=== PATIENT | female | born 1940 | race Caucasian/White ===

== ENCOUNTER 2021-01-10 10:05 | Outpatient (RCR) | payer MEDICARE, SELFPAY ==
[2021-01-10] MEDS: COVID-19 VACC, MRNA(PFIZER)/PF 30 MCG/0.3 ML SYRINGE IM (07:47)
[2021-01-31] MEDS: COVID-19 VACC, MRNA(PFIZER)/PF 30 MCG/0.3 ML SYRINGE IM (07:33)
== END 2021-01-10 23:59 ==
LOC: IMMUN 10:05
PROVIDERS: Visit Provider Family Medicine
DX: Z23 Encounter for immunization (principal)
CPT/HCPCS: 0001A; 0002A

== ENCOUNTER 2021-08-23 11:04 | Emergency (ER) | payer MEDICARE, SELFPAY ==
[2021-08-23 11:05] VITALS: BP 193/80; PULSE 82; RESP 14; TEMP 36.6; O2SAT 100; BMI 21.4
[2021-08-23 12:49] VITALS: PULSE 81; RESP 13; O2SAT 97
[2021-08-23 13:24] LABS: Anion Gap 6 (5-15); BUN 21 mg/dL (7-18); BUN/Creat Ratio 26.9 RATIO (10-20); Calcium,Total 9.7 mg/dL (8.5-10.1); Chloride 102 mmol/L (98-107); Creatinine, Serum 0.78 mg/dL (0.55-1.02); EST Glomerular Filtration Rate 75 mL/min (>60); Est Glom Filt Rate - Afr Amer 91 mL/min (>60); Estimated Creatinine Clearance 37.12 ml/min; Glucose 105 mg/dL (74-106); Potassium 3.6 mmol/L (3.5-5.1); Sodium Level 139 mmol/L (136-145)
--- NOTE | 2021-08-23 13:37 | CT_ITS ---
STUDY: CTA CHEST, ABDOMEN T PELVIS WITH CONTRAST REASON FOR EXAM: Female, 80 years old. chest/abd/pelv pain w/ back pain -- eval for dissection RADIATION DOSAGE (If Supplied By Facility): CTDIvol = ( 6.14 ) mGy, DLP = ( 431.39 ) mGycm TECHNIQUE: Transaxial imaging was performed following intravenous administration of IV 100mL Isovue-370. Individualized dose optimization techniques were used for this CT. COMPARISON: No relevant priors. FINDINGS: CHEST Mild degree of the emphysematous changes. There is no demonstrated pleural abnormality. Normal heart and pericardium. Normal mediastinum. Normal hilar regions. Normal unenhanced pulmonary arteries. There is atherosclerotic calcification of the aortic arch. No evidence of aortic dissection. Normal osseous structures. There is no demonstrated abnormality of the visualized upper abdomen. ABDOMEN The visualized lung bases are unremarkable. The visualized portions of the heart are within normal limits. Normal liver. Mildly distended gallbladder. Mildly dilated common bile duct down to the ampulla of VATER. Normal spleen. The pancreatic duct is dilated down to the ampulla of VATER.. Normal bilateral adrenal glands. Normal right kidney. Normal left kidney. Normal visualized stomach. There is evidence of a 1.6 cm x 1 cm diverticulum in the second portion of the duodenum. Normal colon. The appendix is visualized and appears normal. There is scattered atherosclerotic calcification of the abdominal aorta, without a demonstrated aneurysm. No evidence of an aortic dissection. Minimal calcific plaque at the origin of the celiac artery. Normal inferior vena cava. Normal retroperitoneum. Normal abdominal wall. There are degenerative changes of the visualized lumbar spine. PELVIS Normal urinary bladder. Fibroid uterus. Normal visualized small intestine. Normal visualized colon. There is no pelvic fluid. There is no pelvic lymphadenopathy or mass lesion. Normal visualized pelvic arteries. CT/CTA Chst, Abd, Pel W and/or WO IMPRESSION: No evidence of aortic dissection. Mildly dilated pancreatic duct and common bile duct. Mildly distended gallbladder. Duodenal diverticulum. Electronically Signed: Kit Samuel MD at 15:05 EDT , Service support ,
--- NOTE | 2021-08-23 13:38 | EKG12_ITS ---
Test Reason : ABDOMINAL PAIN Blood Pressure : / mmHG Vent. Rate : 088 BPM Atrial Rate : 088 BPM P-R Int : 114 ms QRS Dur : 066 ms QT Int : 358 ms P-R-T Axes : 080 025 081 degrees QTc Int : 433 ms Normal sinus rhythm Nonspecific ST abnormality Abnormal ECG Confirmed by ALEXUS RODRIGUEZ, FILEMON ([id number]), graphic editor VIKI MANN ([id number]) on 08/27/2021 7:52:45 AM Referred By: DANIELITO Confirmed By:FILEMON VAUGHAN MD
--- NOTE | 2021-08-23 13:42 | EDS_ITS ---
HPI History of Present Illness Chief Complaint: Abd Pain Informant: patient Onset/Context/Timing Onset: Today (this AM, 3-5 hrs prior to eval) Context: Sudden Onset Timing: Continuous and Waxes and wanes (colicky) Quality: pain Location: midline chest, abd, pelv Current Severity: Severe Maximum Severity: Severe Worsened by: nothing Relieved by: nothing Associated Symptoms Associated Symptoms: low back pain, nausea Narrative Narrative: 80-year-old female who started having hematuria last week and some suprapubic pressure, she was started on an unknown antibiotic 5 days ago, and then it was switched to nitrofurantoin which she is currently taking since 1-2 days. She states this morning about an hour after taking the antibiotic, her other medications, and eating a banana and cereal/milk, she suddenly started having severe pain from the suprapubic area all the way up to her retrosternal area. She has some pain in her low back and she cannot tell if it is related to this, or to the prior urine infection, or her chronic sciatica. She has had no syncope but she did feel lightheaded earlier. She denies any more hematuria. She has felt nauseated but no vomiting. She has had no recent diarrhea or bleeding per rectum. She does not have a history of heart disease that she knows of. She denies any dyspnea or cough or fevers. [facility] Medical History Hypothyroid Home Medications levothyroxine 75 mcg PO DAILY 08/23/21 [History Last Taken Unknown] nitrofurantoin monohyd/m-cryst 100 mg PO BID 08/23/21 [History Last Taken Unknown] Allergy/AdvReac Type Severity Reaction Status Date / Time Unable to Assess Allergy Verified 08/23/21 11:05 Social History Smoking Status: Never smoker ROS ROS ED Constitutional Constitutional ED: Denies chills or fever(s) Eyes Eyes: Denies change in vision or diplopia ENT ENT ED: Denies rhinorrhea or sore throat Cardiovascular Cardiovascular: Reports chest pain; Denies palpitations Respiratory/Chest Respiratory/Chest: Denies cough or dyspnea Gastrointestinal Gastrointestinal: Reports as per HPI, abdominal pain and nausea; Denies diarrhea or vomiting Genitourinary Genitourinary ED: Reports as per HPI; Denies dysuria or hematuria Musculoskeletal Musculoskeletal: Reports back pain; Denies neck pain Integumentary Denies abscess or rash Neurologic Neurologic: Denies headache(s), paresthesias or weakness Psychiatric Psychiatric: Denies anxiety or suicidal thoughts EXAM Physical Exam Const Vital Signs: 08/23/21 11:05 08/23/21 12:49 08/23/21 15:35 Temperature 97.8 F Temperature Source Temporal Pulse Rate 82 81 91 Respiratory Rate 14 13 19 H Blood Pressure 193/80 H Blood Pressure Mean 117 Pulse Ox 100 97 93 Oxygen Delivery Method Room Air Room Air Room Air Positive well nourished and well developed General Appearance ED: well developed and NAD HEENT Reports moist mucous membranes normocephalic and atraumatic Eyes PERRL and EOMs intact bilaterally Neck full ROM and supple Resp normal respiratory effort and clear to auscultation bilaterally Cardio regular rate, regular rhythm and no murmurs Cardio Narrative: 2+ dorsalis pedis pulses intact. Rate: Negative for tachycardic GI GI Narrative: Patient is diffusely tender with rebound tenderness, no guarding. No distention. No Flaherty Frey or [place] signs. Auscultation: normoactive bowel sounds Palpation: soft Back/Spine no CVA tenderness General Back: other FROM Extremity normal to inspection General Extremety ED: Negative for edema, pulses abnormal or tenderness General Extremity: Negative for edema or pulses abnormal Neuro oriented x3, CN's II-XII intact bilaterally and no sensory deficits noted Sensorium / Orientation: awake and alert Motor Exam: strength 5/5 throughout Skin no rashes or lesions noted and no wounds MDM MDM MDM Narrative Medical decision making narrative: Patient looks good clinically but is very hypertensive, has clinical symptoms that could be consistent with a dissection or ruptured AAA, has tenderness diffusely throughout the abdomen along with some rebound tenderness. Therefore initially, CTA of the chest abdomen pelvis was obtained to rule out these catastrophic conditions, which likely she does not have however a distended gallbladder was noted. I reexamined her after given her morphine, she was feeling much better, but is oil process stillman across the upper abdomen, I did a bedside ultrasound, I do not see any stones but she definitely has a positive sonographic Palacios's and the gallbladder appears to be up against the abdominal wall at its distal point in the right mid abdomen, which may be explaining her peritoneal symptoms/findings. Her labs are unremarkable including her troponin, and her EKG is essentially normal. After the analgesics, her chest symptoms are gone. Discussed all this with surgery Dr. Thompson. He recommends getting an official ultrasound first. If there are stones, then we can manage her from there, depending on if there appear to be any in the ducts or not given that she had some mild diffuse ductal dilatation. If negative, and the patient is doing okay, she may be reasonable to follow-up as an outpatient and have a HIDA scan versus MRCP then. Therefore at this time ultrasound of the gallbladder is ordered, will be checked out to the oncoming emergency physician. Since the patient will be here, I will also get a 2-hour delta troponin measurement, I do not think her chest discomfort was cardiac I think it was more related to her abdominal pain which I suspect is biliary colic, and if negative I think this will help prove no ncardiac etiology. Lab Data Attestation: I reviewed the patient's lab results. Labs: Laboratory Results - last 24 hr 08/23/21 08/23/21 08/23/21 12:05 12:05 12:05 WBC 9.1 RBC 4.99 Hgb 15.1 H Hct 47.4 H MCV 95.0 MCH 30.3 MCHC 31.9 L RDW Std Deviation 44.1 H RDW Coeff of Karon 12.7 Plt Count 353 MPV 10.0 Immature Gran % (Auto) 0.300 Neut % (Auto) 75.0 H Lymph % (Auto) 19.2 [place] % (Auto) 4.1 Eos % (Auto) 1.1 Baso % (Auto) 0.3 Absolute Neuts (auto) 6.8 Absolute Lymphs (auto) 1.74 Nucleated RBC % 0 Sodium 139 Potassium 3.6 Chloride 102 Carbon Dioxide 31.0 Anion Gap 6 BUN 21 H Creatinine 0.78 Estim Creat Clear Calc 37.12 Est GFR (MDRD) Af Amer 91 Est GFR (MDRD) Non-Af 75 BUN/Creatinine Ratio 26.9 H Glucose 105 Calcium 9.7 Total Bilirubin 0.30 Direct Bilirubin 0.12 AST 26 ALT 22 Alkaline Phosphatase 75 Troponin I High Sens Total Protein 7.7 Albumin 3.2 Globulin 4.5 H Lipase 145 Urine Color Urine Clarity Urine pH Ur Specific [place] U Specif Grav (Refrac) Urine Protein Urine Glucose (UA) Urine Ketones Urine Occult Blood Urine Nitrite Urine Bilirubin Urine Urobilinogen Ur Leukocyte Esterase Urine RBC Urine WBC Ur Squamous Epith Cells Ur Transition Epith Cell Ur Renal Epithelial Cell Calcium Oxalate Crystal Uric Acid Crystals Triple Phos Crystals Other Crystals Amorphous Sediment Urine Bacteria Hyaline Casts Fine Granular Casts Coarse Granular Casts Waxy Casts RBC Casts WBC Casts Urine Mucus Urine Trichomonas Urine Yeast 08/23/21 08/23/21 08/23/21 12:05 15:01 15:01 WBC RBC Hgb Hct MCV MCH MCHC RDW Std Deviation RDW Coeff of Karon Plt Count MPV Immature Gran % (Auto) Neut % (Auto) Lymph % (Auto) [place] % (Auto) Eos % (Auto) Baso % (Auto) Absolute Neuts (auto) Absolute Lymphs (auto) Nucleated RBC % Sodium Potassium Chloride Carbon Dioxide Anion Gap BUN Creatinine Estim Creat Clear Calc Est GFR (MDRD) Af Amer Est GFR (MDRD) Non-Af BUN/Creatinine Ratio Glucose Calcium Total Bilirubin Direct Bilirubin AST ALT Alkaline Phosphatase Troponin I High Sens 53 Total Protein Albumin Globulin Lipase Urine Color Cancelled Yellow Urine Clarity Cancelled Clear Urine pH Cancelled 7.0 Ur Specific [place] Cancelled 1.010 U Specif Grav (Refrac) Cancelled Urine Protein Cancelled Negative Urine Glucose (UA) Cancelled Normal Urine Ketones Cancelled 5 H Urine Occult Blood Cancelled Negative Urine Nitrite Cancelled Negative Urine Bilirubin Cancelled Negative Urine Urobilinogen Cancelled Normal Ur Leukocyte Esterase Cancelled 100 H Urine RBC Cancelled 0 SEEN Urine WBC Cancelled 0-5 SEEN Ur Squamous Epith Cells Cancelled 0-5 SEEN Ur Transition Epith Cell Cancelled Ur Renal Epithelial Cell Cancelled Calcium Oxalate Crystal Cancelled Uric Acid Crystals Cancelled Triple Phos Crystals Cancelled Other Crystals Cancelled Amorphous Sediment Cancelled Urine Bacteria Cancelled 0 SEEN Hyaline Casts Cancelled Fine Granular Casts Cancelled Coarse Granular Casts Cancelled Waxy Casts Cancelled RBC Casts Cancelled WBC Casts Cancelled Urine Mucus Cancelled 0 SEEN Urine Trichomonas Cancelled Urine Yeast Cancelled Radiography Diagnostic Testing: Clinical Impression(s) from Imaging Studies Chest/Abdomen/Pelvis CTA 08/23/21 13:37 IMPRESSION: No evidence of aortic dissection. Mildly dilated pancreatic duct and common bile duct. Mildly distended gallbladder. Duodenal diverticulum. Electronically Signed: Kit Samuel MD at 15:05 EDT , Service support , EKG Initial EKG: Attestation: I personally reviewed and interpreted this EKG as follows: Interpretation: Sinus Rhythm and No Acute Injury Pattern Prior: No Prior Discharge Plan Triage Chief Complaint: Abd Pain ED Provider: Kareem Perkins Dx/Rx/DC Orders Clinical Impression: Biliary colic, Chest pain, unspecified Prescriptions: No Action levothyroxine 75 mcg tablet 75 mcg PO DAILY RF: 0 nitrofurantoin monohyd/m-cryst 100 mg capsule 100 mg PO BID RF: 0 Primary Care Provider: Care Physician,No Primary Referrals: Care Physician,No Primary [Primary Care Provider] -
[2021-08-23] MEDS: Morphine 2 MG/ML Syringe IV (14:08)
[2021-08-23] MEDS: Ondansetron 4 MG/2 ML Vial IV (14:08)
[2021-08-23 14:12] LABS: Absolute Lymphocyte Count 1.74 X10^3/uL (0.83-4.51); Absolute Neutrophil Count 6.8 X10^3/uL (2.0-7.7); Basophil# 0.03 X10^3/uL; Basophil% 0.3 % (0-1); Eosinophils% 1.1 % (0-5); Hematocrit 47.4 % (37-47); Hemoglobin 15.1 g/dL (12.0-15.0); Lymphocyte # 1.74 X10^3/ul (0.83-4.51); Lymphocyte % 19.2 % (19-41); Mean Corp Hgb Conc 31.9 g/dL (32-36); Mean Corpuscular Hgb 30.3 pg (27.0-32.0); Monocyte# 0.37 X10^3/uL; Monocyte% 4.1 % (0-10); NRBC Flagged by Analyzer 0 % (0-5); Platelet Count 353 K/mm3 (150-450); RBC Distribution Width CV 12.7 % (11.6-14.6); RBC Distribution Width SD 44.1 fl (35.1-43.9); Red Blood Count 4.99 M/mm3 (4.2-5.4); White Blood Count 9.1 K/mm3 (4.4-11.0)
[2021-08-23 14:28] LABS: Troponin-I HS 53 pg/mL (3.0-54.0)
[2021-08-23 14:33] LABS: AST(SGOT) 26 U/L (15-37); Alanine Aminotransfer ALT/SGPT 22 U/L (13-56); Albumin, Serum 3.2 g/dL (3.2-5.0); Alkaline Phosphatase 75 U/L (45-117); Bilirubin, Direct 0.12 mg/dL (0.00-0.30); Globulin 4.5 g/dL (2.2-4.2); Lipase 145 U/L (73-393); Protein, Total 7.7 g/dL (6.4-8.2)
[2021-08-23 15:12] LABS: Bacteria 0 SEEN /hpf (None Seen); Mucous, Urine 0 SEEN /hpf (<or=2+); Red Blood Cells-Urine 0 SEEN /hpf (0-5)
[2021-08-23 15:17] LABS: Color, Urine Yellow (Yellow); Glucose, Dipstick Normal (Normal); Ketone-Dipstick 5 mg/dl (Negative); Leukocyte Esterase-Dipstick 100 /ul (Negative); Nitrite-Dipstick Negative (Negative); Occult Blood-Urine Negative /ul (Negative); Protein-Dipstick Negative (Negative); Urine Bilirubin Dipstick Negative (Negative); Urine Clarity Clear (Clear); Urine Urobilinogen Normal (Normal)
[2021-08-23 15:35] VITALS: PULSE 91; RESP 19; O2SAT 93
[2021-08-23 15:44] LABS: White Blood Cells 0-5 SEEN /hpf (0-5)
[2021-08-23 15:45] LABS: Squamous Epithelial Cells - UA 0-5 SEEN /hpf (5-10)
--- NOTE | 2021-08-23 15:56 | US_ITS ---
EXAM: US ABDOMEN LIMITED, RIGHT UPPER QUADRANT : 1940 CLINICAL INDICATION: abd pain, nausea TECHNIQUE: Real-time ultrasound of the right upper quadrant with image documentation. This report was created using [employer] report generation technology. COMPARISON: None. FINDINGS: LIVER: The liver measures 18 cm. There is normal echotexture. No intrahepatic biliary ductal dilation. GALLBLADDER: Gallbladder wall measures 1.7 mm. There is a small 2 mm echogenic focus which may represent a small polyp. No shadowing gallstone. No pericholecystic fluid. Negative sonographic Palacios's sign. COMMON BILE DUCT: Common bile duct measures 8 mm. The proximal common bile duct is within normal limits for the patient's age. PANCREAS: Pancreatic duct measures 3 mm. RIGHT KIDNEY: The right kidney measures 10.4 x 3.2 x 5.5 cm. Medial to the right kidney there is a 3.7 x 1.3 cm anechoic structure which may represent an exophytic cyst. There is no hydronephrosis. No shadowing calculus. US/Gallbladder IMPRESSION: 1. Small echogenic focus which may represent a gallbladder polyp. There is no evidence of cholelithiasis or cholecystitis. 2. Common bile duct the upper limits of normal in size for the patient's age. There is also minimal dilatation of the pancreatic duct measuring 3 mm. If indicated further evaluation with MRCP may be beneficial. at 1746 Reported and signed by: Von Mendes MD Electronically Signed: Von Mendes MD at 17:45 EDT Tel , Service support ,
[2021-08-23 16:37] LABS: Troponin-I HS 53 pg/mL (3.0-54.0)
[2021-08-23 18:02] VITALS: PULSE 93
--- NOTE | 2021-08-23 18:25 | EDS_ITS ---
HPI HPI - GI History of Present Illness Chief Complaint: Abd Pain Detail of Chief Complaint: Abdominal pain that started this morning Narrative Narrative: Care of patient turned over to me by Dr. Trevor Perkins awaiting results of right upper quadrant ultrasound. I was to discuss case with surgeon on-call Dr. Thompson. Patient was noted to have a possible polyp in the gallbladder otherwise nothing significant. I discussed this with the general surgeon who did not feel her findings are consistent with cholecystitis or an acute surgical process. I was asked to start patient on Carafate and Prevacid. He will see her in the office next week. Patient advised to return if worsening pain, fever, vomiting, or conditions worsen anyway. On repeat exam she is not complaining of any pain currently but has some mild tenderness over right upper quadrant on palpation. There is no rebound, rigidity, or peritoneal signs. PFSH PFSH Medical History Hypothyroid Home Medications lansoprazole [Prevacid] 30 mg PO DAILY #14 cap 08/23/21 [Rx Last Taken Unknown] levothyroxine 75 mcg PO DAILY 08/23/21 [History Last Taken Unknown] nitrofurantoin monohyd/m-cryst 100 mg PO BID 08/23/21 [History Last Taken Unknown] sucralfate [Carafate] 1 g PO Q6H 28 Days #112 tab 08/23/21 [Rx Last Taken Unknown] Allergy/AdvReac Type Severity Reaction Status Date / Time Unable to Assess Allergy Verified 08/23/21 11:05 Social History Smoking Status: Never smoker EXAM Physical Exam Const Vital Signs: 08/23/21 11:05 08/23/21 12:49 08/23/21 15:35 Temperature 97.8 F Temperature Source Temporal Pulse Rate 82 81 91 Respiratory Rate 14 13 19 H Blood Pressure 193/80 H Blood Pressure Mean 117 Pulse Ox 100 97 93 Oxygen Delivery Method Room Air Room Air Room Air 08/23/21 18:02 Temperature Temperature Source Pulse Rate 93 Respiratory Rate Blood Pressure Blood Pressure Mean Pulse Ox Oxygen Delivery Method [facility] Lab Data Labs: Laboratory Results - last 24 hr 08/23/21 08/23/21 08/23/21 12:05 12:05 12:05 WBC 9.1 RBC 4.99 Hgb 15.1 H Hct 47.4 H MCV 95.0 MCH 30.3 MCHC 31.9 L RDW Std Deviation 44.1 H RDW Coeff of Karon 12.7 Plt Count 353 MPV 10.0 Immature Gran % (Auto) 0.300 Neut % (Auto) 75.0 H Lymph % (Auto) 19.2 [place] % (Auto) 4.1 Eos % (Auto) 1.1 Baso % (Auto) 0.3 Absolute Neuts (auto) 6.8 Absolute Lymphs (auto) 1.74 Nucleated RBC % 0 Sodium 139 Potassium 3.6 Chloride 102 Carbon Dioxide 31.0 Anion Gap 6 BUN 21 H Creatinine 0.78 Estim Creat Clear Calc 37.12 Est GFR (MDRD) Af Amer 91 Est GFR (MDRD) Non-Af 75 BUN/Creatinine Ratio 26.9 H Glucose 105 Calcium 9.7 Total Bilirubin 0.30 Direct Bilirubin 0.12 AST 26 ALT 22 Alkaline Phosphatase 75 Troponin I High Sens Total Protein 7.7 Albumin 3.2 Globulin 4.5 H Lipase 145 Urine Color Urine Clarity Urine pH Ur Specific [place] U Specif Grav (Refrac) Urine Protein Urine Glucose (UA) Urine Ketones Urine Occult Blood Urine Nitrite Urine Bilirubin Urine Urobilinogen Ur Leukocyte Esterase Urine RBC Urine WBC Ur Squamous Epith Cells Ur Transition Epith Cell Ur Renal Epithelial Cell Calcium Oxalate Crystal Uric Acid Crystals Triple Phos Crystals Other Crystals Amorphous Sediment Urine Bacteria Hyaline Casts Fine Granular Casts Coarse Granular Casts Waxy Casts RBC Casts WBC Casts Urine Mucus Urine Trichomonas Urine Yeast 08/23/21 08/23/21 08/23/21 12:05 15:01 15:01 WBC RBC Hgb Hct MCV MCH MCHC RDW Std Deviation RDW Coeff of Karon Plt Count MPV Immature Gran % (Auto) Neut % (Auto) Lymph % (Auto) [place] % (Auto) Eos % (Auto) Baso % (Auto) Absolute Neuts (auto) Absolute Lymphs (auto) Nucleated RBC % Sodium Potassium Chloride Carbon Dioxide Anion Gap BUN Creatinine Estim Creat Clear Calc Est GFR (MDRD) Af Amer Est GFR (MDRD) Non-Af BUN/Creatinine Ratio Glucose Calcium Total Bilirubin Direct Bilirubin AST ALT Alkaline Phosphatase Troponin I High Sens 53 Total Protein Albumin Globulin Lipase Urine Color Cancelled Yellow Urine Clarity Cancelled Clear Urine pH Cancelled 7.0 Ur Specific [place] Cancelled 1.010 U Specif Grav (Refrac) Cancelled Urine Protein Cancelled Negative Urine Glucose (UA) Cancelled Normal Urine Ketones Cancelled 5 H Urine Occult Blood Cancelled Negative Urine Nitrite Cancelled Negative Urine Bilirubin Cancelled Negative Urine Urobilinogen Cancelled Normal Ur Leukocyte Esterase Cancelled 100 H Urine RBC Cancelled 0 SEEN Urine WBC Cancelled 0-5 SEEN Ur Squamous Epith Cells Cancelled 0-5 SEEN Ur Transition Epith Cell Cancelled Ur Renal Epithelial Cell Cancelled Calcium Oxalate Crystal Cancelled Uric Acid Crystals Cancelled Triple Phos Crystals Cancelled Other Crystals Cancelled Amorphous Sediment Cancelled Urine Bacteria Cancelled 0 SEEN Hyaline Casts Cancelled Fine Granular Casts Cancelled Coarse Granular Casts Cancelled Waxy Casts Cancelled RBC Casts Cancelled WBC Casts Cancelled Urine Mucus Cancelled 0 SEEN Urine Trichomonas Cancelled Urine Yeast Cancelled 08/23/21 16:00 WBC RBC Hgb Hct MCV MCH MCHC RDW Std Deviation RDW Coeff of Karon Plt Count MPV Immature Gran % (Auto) Neut % (Auto) Lymph % (Auto) [place] % (Auto) Eos % (Auto) Baso % (Auto) Absolute Neuts (auto) Absolute Lymphs (auto) Nucleated RBC % Sodium Potassium Chloride Carbon Dioxide Anion Gap BUN Creatinine Estim Creat Clear Calc Est GFR (MDRD) Af Amer Est GFR (MDRD) Non-Af BUN/Creatinine Ratio Glucose Calcium Total Bilirubin Direct Bilirubin AST ALT Alkaline Phosphatase Troponin I High Sens 53 Total Protein Albumin Globulin Lipase Urine Color Urine Clarity Urine pH Ur Specific [place] U Specif Grav (Refrac) Urine Protein Urine Glucose (UA) Urine Ketones Urine Occult Blood Urine Nitrite Urine Bilirubin Urine Urobilinogen Ur Leukocyte Esterase Urine RBC Urine WBC Ur Squamous Epith Cells Ur Transition Epith Cell Ur Renal Epithelial Cell Calcium Oxalate Crystal Uric Acid Crystals Triple Phos Crystals Other Crystals Amorphous Sediment Urine Bacteria Hyaline Casts Fine Granular Casts Coarse Granular Casts Waxy Casts RBC Casts WBC Casts Urine Mucus Urine Trichomonas Urine Yeast Radiography Diagnostic Testing: Clinical Impression(s) from Imaging Studies Chest/Abdomen/Pelvis CTA 08/23/21 13:37 IMPRESSION: No evidence of aortic dissection. Mildly dilated pancreatic duct and common bile duct. Mildly distended gallbladder. Duodenal diverticulum. Electronically Signed: Kit Samuel MD at 15:05 EDT , Service support , Gallbladder Ultrasound 08/23/21 15:56 IMPRESSION: 1. Small echogenic focus which may represent a gallbladder polyp. There is no evidence of cholelithiasis or cholecystitis. 2. Common bile duct the upper limits of normal in size for the patient's age. There is also minimal dilatation of the pancreatic duct measuring 3 mm. If indicated further evaluation with MRCP may be beneficial. at 1746 Reported and signed by: Von Mendes MD Electronically Signed: Von Mendes MD at 17:45 EDT Tel , Service support , Discharge Plan Triage Chief Complaint: Abd Pain ED Provider: Kareem Perkins Dx/Rx/DC Orders Clinical Impression: Biliary colic, Chest pain, unspecified Instructions: ED Abdominal Pain Unkn Cause Fem, ED PEPTIC ULCER vs GASTRITIS Prescriptions: New lansoprazole [Prevacid] 30 mg capsule,delayed release(DR/EC) 30 mg PO DAILY Qty: 14 RF: 0 sucralfate [Carafate] 1 gram tablet 1 g PO Q6H 28 Days Qty: 112 RF: 0 No Action levothyroxine 75 mcg tablet 75 mcg PO DAILY RF: 0 nitrofurantoin monohyd/m-cryst 100 mg capsule 100 mg PO BID RF: 0 Primary Care Provider: Care Physician,No Primary Referrals: Hao Thompson MD [STAFF PHYSICIAN] - 3-5 Days Care Physician,No Primary [Primary Care Provider] - Disposition Disposition: Home, Self Care
== END 2021-08-23 19:02 | disposition home or self-care (01) ==
PROVIDERS: Emergency Provider Emergency Medicine
DX: K80.50 Calculus of bile duct without cholangitis or cholecystitis without obstruction (principal); R07.9 Chest pain, unspecified; E03.9 Hypothyroidism, unspecified; Z79.899 Other long term (current) drug therapy
CPT/HCPCS: 71275; 74174; 76705; 80048; 80076; 81001; 83690; 84484; 85025; 93005; 96361; 96374; 96375; 99284; J7040; Q9967; A4216; J2405

== ENCOUNTER → 2021-10-07 09:54 | Outpatient (CLI) | payer MEDICARE, SELFPAY ==
--- NOTE | 2021-10-07 09:54 | MRI_ITS ---
STUDY: MR MRCP WITHOUT CONTRAST REASON FOR EXAM: Female, 81 years old. CBD and panc duct dilation -- MRCP TECHNIQUE: Standard MRCP technique was utilized. 3-D reconstructions were performed. COMPARISON: Ultrasound and CT 08/23/2021 FINDINGS: Gall Bladder: Normal with no distention or demonstrated fixed intraluminal filling defect. Cystic duct: Normal with no demonstrated fixed filling defect. Intrahepatic ducts: Normal visualized intrahepatic ducts with no demonstrated fixed filling defect, dilation or stricture. Common hepatic duct: Normal with no demonstrated fixed filling defect, dilation or stricture. Common bile duct: Mild dilatation of the distal common bile duct. Pancreatic duct: Moderately dilated. MRI/MRCP Abdomen without Contrast IMPRESSION: Mild dilatation of the distal common bile duct with some pneumobilia likely related to prior sphincterotomy. Moderately dilated pancreatic duct. No discrete stricture or mass. Electronically Signed: Seng Sofia MD at 14:35 EST Tel , Service support ,
== END ==
PROVIDERS: PCP Internal Medicine; Referring Provider Surgery; Visit Provider Surgery
DX: K83.8 Other specified diseases of biliary tract (principal)
CPT/HCPCS: 74181

== ENCOUNTER 2021-11-18 08:13 | Day surgery (SDC) | payer MEDICARE, SELFPAY ==
[2021-11-18] VITALS (10 sets, daily range): BP systolic 100–182; BP diastolic 53–79; PULSE 59–82; RESP 14–16; TEMP 36–36.6; O2SAT 64–100; BMI 20.9
--- NOTE | 2021-11-18 | FLU_PTH ---
PATIENT: WARD ALEXIS LOC: EN U#:[id number] AGE/SX: 81/F ROOM: RE11/18/[address]: Dr. Osmar Sethi DO : 1940 BED: DIS: 11/18/2021 SPEC #: [id number] RECD: 11/18/21 12:50 STATUS: LULU REQ #: [id number] KATTY: 11/18/21 00:[address]: Osmar Sethi DEPT: CYTOLOGY RECD BY: Migue Reyes ENTERED: 11/18/21 12:51 SP TYPE: Fluid OTHR DR: Dr. Sandrita Segundo MD Tissues: A - Bile duct, NOS B - Bile duct, NOS Procedures: Special Stain Group II Surgery Specimen Level IV Cytology Other HEADER OPERATION: ERCP PRE-OP DIAGNOSIS: Abnormal MRCP TISSUE SUBMITTED: A ? Common bile duct brush tip, B ? Common bile duct brushings DIAGNOSIS CYTOLOGY A. Common bile duct brush tip (cytospin): Negative for malignant cells. B. Common bile duct brushings (smears): Negative for malignant cells. AM:[email or web address] 11/19/2021 CYTOLOGY STUDY Slides are reviewed. CYTOLOGY GROSS A - Received is a metallic endoscopic cytobrush with adherent minute fragments of lee-red tissue brush in 2 ml of clear red fluid and labeled with the patient's name and and designated per the requisition as brush. The material is dislodged from the brush and submitted for cytology preparation including cell block. B - Received are three smears labeled with the patient's name and designated per the requisition as common bile duct brushings. Submitted for staining. / raymundo 11/18/2021 TC:5 CPT: 44334, 11511
--- NOTE | 2021-11-18 08:30 | HP.PCM_ITS ---
History and Physical Date of Admission: 11/18/21 WARD ALEXIS, is a 81 F who presents to the office today for Presented to [facility] ED 08/23/[address] Trevor Perkins transferring care for abdominal pain. Discussion with Dr. Thompson for continued workup as outpatient as it was not felt she had cholecystitis or acute surgical need. Di scharged on Carafate and prevacid. CTA chest/abd/pel 08/23/21. Chest normal findings. Mildly distended gallbladder. Mildly dilated common bile duct and pancreatic duct both dilated of apulla of VATER. Diverticulum evidence in duodenum. Fibroid uterus. Gallbladder US 08/23/21 Liver measures 18cm with normal echotexture and no biliary duct dilation. Gallbladder found 2mm echogenic focus as a possible small polyp. Common bile duct at the upper limits (8mm) considering her age. Minimal dilation of pancreatic duct (3mm). Correlate with MRCP. MRCP performed 10/07/21 with findings of normal gallbladder, cystic duct, intrahepatic ducts, common hepatic duct. Common bile duct mildly dilated distal of the common bile duct likely related to prior sphincterotomy. Pancreatic duct moderately dilated. Presented to [facility] ED 08/30/21 due to worsened suprapubic pain with radiation. Reported hematuria the week prior and suprapubic pressure. Started on ATB therapy. Seen by Dr. Thompson as outpatient 09/04/21 where she reported that her epigastric pain was mostly resolved with continuing soreness. Pain noted with PO intake which radiates into chest. Diagnosis of gastritis with recommendation of continuing PPI and Carafate. Follow up with him 10/15/21 with symptom resolution and referral to this office following MRCP for evaluation of ERCP need. States that she is doing well at this time. Has finished taking Carafate and continues with PPI. No continued symptoms at this time. ROS Const Constitutional: No anorexia, fatigue, fever(s), weight change or sleep problems Eyes Eyes: No change in vision ENT ENT: No abnormal hearing, difficulty swallowing, mouth lesions, tongue swelling or throat swelling Resp Respiratory: No cough or shortness of breath Cardio Cardiology: No chest pain at rest, chest pain with exertion, shortness of breath or dyspnea on exertion Gastro GI: No difficulty swallowing Genitourinary-Female: No difficulty urinating or burning urination Musc Musculoskeletal: No joint pain, joint swelling, muscle weakness or decreased muscle mass Skin Skin: No hair loss in leg, yellowing of the eye, itchy eyes, rash, skin ulcer or skin swelling Neuro Neurology: No abnormal hearing, abnormal movements, confusion, unsteady gait/balance or memory loss Psych Psychiatric: No anxiety, No confusion and No memory loss Endo Endocrine: No fatigue or weight change Aller/Imm Allergy/Immunologic: No itchy eyes, throat swelling or tongue swelling Angelo/Lymp Hematologic/Lymphatic: No easy bleeding, easy bruising or enlarged lymph nodes Exam Const General: cooperative and comfortable Nutritional Appearance: average body habitus and well nourished [facility] Head: normal to inspection Ears: hearing grossly normal bilaterally Nose: external nose normal Face and sinus: normal facial exam Mouth: oral mucosae normal Throat: posterior oropharynx normal Eyes General: appearance normal, both eyes and all related structures Neck Neck: normal visual inspection Chest Chest palpation & inspection: normal inspection of the chest and normal palpation of entire chest wall Resp Effort & Inspection: normal respiratory effort Auscultation: Bilateral: Clear to Auscultation Cardio Palpation: normal PMI Rate: regular rate Rhythm: regular rhythm GI Inspection: normal to inspection Auscultation: normal bowel sounds Percussion: normal to percussion Palpation: no hepatosplenomegaly Skin General: no rashes or lesions noted Neuro General: patient alert Extrem General: normal to inspection Psych Affect: normal affect Quality Reporting Tobacco Screening ([facility] 138) Smoking Status: Never smoker Assessment and Plan Assessment and Plan (1) Abnormal magnetic resonance cholangiopancreatography (MRCP): Status: Acute Plan - Dr. Prasad Friend, DO: . MRCP demonstrated mild distension of the gallbladder with several calculi. There was intra- and extra-hepatic biliary dilatation to the level of the ampulla. 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 The CBD was dilated to the level of this diverticulum and the cause of the patient?s biliary dilatation and obstruction. A rare pancreaticobiliary complication of duodenal diverticula is Lemmel syndrome. This is on the differential diagnosis along with an ampullary mass. Lemmel syndrome is defined as an obstructive jaundice caused by a periampullary duodenal diverticulum compressing the intra-pancreatic portion of the common bile duct with resultant dilatation of the extra- and intra-hepatic bile ducts. I had a long conversation with her son who was on the phone and the patient explained that the possibilities of stone disease, complication malignancy and possible duodenal diverticulum. They want to undergo ERCP. We will also order a CA 19-9. Pending the ERCP she may need an endoscopic ultrasound. I have re-examined the patient. There are no clinical changes since date of exam.
--- NOTE | 2021-11-18 08:36 | EKG12_ITS ---
Test Reason : PRE-OP Blood Pressure : / mmHG Vent. Rate : 069 BPM Atrial Rate : 069 BPM P-R Int : 124 ms QRS Dur : 070 ms QT Int : 366 ms P-R-T Axes : 084 003 068 degrees QTc Int : 392 ms Normal sinus rhythm with sinus arrhythmia Normal ECG When compared with ECG of 23-AUG-2021 14:14, No significant change was found Confirmed by SYLVIA RODRIGUEZ, MIGEL ([id number]), newspaper photo editor VIKI MANN ([id number]) on 11/22/2021 8:23:14 AM Referred By: Sandrita Segundo Confirmed By:MARY WARD MD
[2021-11-18] MEDS: Lactated Ringers 1,000 ML 15 ML IV ×4 (08:59→13:43)
--- NOTE | 2021-11-18 09:15 | RAD_ITS ---
STUDY: ERCP REASON FOR EXAM: Female, 81 years old. PAIN, abnormal MRCP FLUOROSCOPY TIME (if supplied): ( 4 minutes and 6 seconds ) minutes/seconds. 9 images were submitted. TECHNIQUE: An ERCP was performed by the ink technician. COMPARISON: None. FINDINGS: Mildly dilated common bile duct and central intrahepatic bile ducts. The pancreatic duct is unremarkable. RAD/ERCP Biliary Only IMPRESSION: Mildly dilated common bile duct. Electronically Signed: Kit Samuel MD at 14:03 EST , Service support ,
--- NOTE | 2021-11-18 10:52 | OP.ERCP_ITS ---
Patient Name: Gila Brown Procedure Date: 11/18/2021 9:07 AM Date of : 1940 Age: 81 Procedure: ERCP Indications: Common bile duct stricture Providers: Osmar Sethi DO Medicines: General Anesthesia Patient Profile: This is an 81 year old female. Refer to note in patient chart for documentation of history and physical. Patient has symptoms. Previously obtained MRI showed a stricture in the biliary tree, a dilation in the biliary tree and a dilation in the pancreas. Complications: No immediate complications. Procedure: Pre-Anesthesia Assessment: - Prior to the procedure, a History and Physical was performed, and patient medications and allergies were reviewed. The patient is competent. The risks and benefits of the procedure and the sedation options and risks were discussed with the patient. All questions were answered and informed consent was obtained. Patient identification and proposed procedure were verified by the physician in the pre-procedure area. Mental Status Examination: alert and oriented. Airway Examination: normal oropharyngeal airway and neck mobility. Respiratory Examination: clear to auscultation. CV Examination: normal. Prophylactic Antibiotics: The patient does not require prophylactic antibiotics. Prior Anticoagulants: The patient has taken no previous anticoagulant or antiplatelet agents. ASA Grade Assessment: II - A patient with mild systemic disease. After reviewing the risks and benefits, the patient was deemed in satisfactory condition to undergo the procedure. The anesthesia plan was to use moderate sedation / analgesia (conscious sedation). Immediately prior to administration of medications, the patient was re-assessed for adequacy to receive sedatives. The heart rate, respiratory rate, oxygen saturations, blood pressure, adequacy of pulmonary ventilation, and response to care were monitored throughout the procedure. The physical status of the patient was re-assessed after the procedure. After obtaining informed consent, the scope was passed under direct vision. Throughout the procedure, the patient's blood pressure, pulse, and oxygen saturations were monitored continuously. The duodenoscope was introduced through the mouth, and advanced to the duodenum and used to inject contrast into the bile duct and ventral pancreatic duct. The ERCP was accomplished without difficulty. The patient tolerated the procedure well. Moderate Sedation: Moderate (conscious) sedation was personally administered by an anesthesia professional. The following parameters were monitored: oxygen saturation, heart rate, blood pressure, respiratory rate, EKG, adequacy of pulmonary ventilation, and response to care. Total physician intraservice time was 15 minutes. Scope In: 9:39:12 AM Scope Out: 10:30:45 AM Total Procedure Duration Time 0 hours 51 minutes 33 seconds Findings: The credit and collection manager film was normal. The esophagus was successfully intubated under direct vision. The scope was advanced to a normal major papilla in the descending duodenum without detailed examination of the pharynx, larynx and associated structures, and upper GI tract. The upper GI tract was grossly normal. The bile duct was deeply cannulated with the short-nosed traction sphincterotome. Contrast was injected. I personally interpreted the bile duct and pancreatic duct images. There was brisk flow of contrast through the ducts. Image quality was adequate. Contrast extended to the gallbladder. Contrast extended to the entire biliary tree. Contrast extended to the pancreatic duct. Opacification of the main bile duct was successful. The maximum diameter of the ducts was 7 mm. The lower third of the main bile duct contained a single localized stenosis 6 mm in length. The biliary pancreatic junction and main bile duct were diffusely dilated, uncertain significance. The largest diameter was 5 mm. The lower third of the main bile duct contained a single localized stenosis 6 mm in length. The lower third of the main bile duct contained filling defect(s) thought to be sludge. The lower third of the main bile duct contained one stone, which was 6 mm in diameter. A large-mouthed diverticulum was found in the area of the papilla. A straight Roadrunner wire was passed into the biliary tree. A 5 mm biliary sphincterotomy was made with a monofilament traction (standard) sphincterotome using ERBE electrocautery. The sphincterotomy oozed blood. The biliary tree was swept with a 12 mm balloon starting at the bifurcation. Sludge was swept from the duct. All stones were removed. Cells for cytology were obtained by brushing in the lower third of the main bile duct. Verification of patient identification for the specimen was done by the physician using the patient's name. One 5 Fr by 4 cm temporary stent with a single external pigtail and a single internal pigtail was placed 5 cm into the ventral pancreatic duct. Clear fluid flowed through the stent. The stent was in good position. Dilation of the common bile duct with a 6-7-8 mm balloon dilator was successful. Impression: - Duodenal diverticulum. - The examination was suspicious for sludge. - A single localized biliary stricture was found in the lower third of the main bile duct. The stricture was indeterminate. - A single localized biliary stricture was found in the lower third of the main bile duct. The stricture was fibrotic and indeterminate. - The entire main bile duct was dilated, uncertain significance. - Choledocholithiasis was found. Complete removal was accomplished by biliary sphincterotomy and balloon extraction. - A biliary sphincterotomy was performed. - The biliary tree was swept. - Cells for cytology obtained in the lower third of the main duct. - One temporary stent was placed into the ventral pancreatic duct. - Common bile duct was successfully dilated. Recommendation: - Discharge patient to home. - Full liquid diet - advance as tolerated to resume previous diet. - Await cytology results. - Return to my office in 2 weeks. Procedure Code(s): --- Professional --- 43687, Endoscopic retrograde cholangiopancreatography (ERCP); with placement of endoscopic stent into biliary or pancreatic duct, including pre- and post-dilation and guide wire passage, when performed, including sphincterotomy, when performed, each stent [id number], 59, Endoscopic retrograde cholangiopancreatography (ERCP); with trans-endoscopic balloon dilation of biliary/pancreatic duct(s) or of ampulla (sphincteroplasty), including sphincterotomy, when performed, each duct 85657, Endoscopic retrograde cholangiopancreatography (ERCP); with removal of calculi/debris from biliary/pancreatic duct(s) 27917, Combined endoscopic catheterization of the biliary and pancreatic ductal systems, radiological supervision and interpretation CPT copyright 2017 [employer]. All rights reserved. The codes documented in this report are preliminary and upon bus boy review may be revised to meet current compliance requirements. Osmar Sethi DO 11/18/2021 10:52:07 AM This report has been signed electronically. Number of Addenda: 0 Note Initiated On: 11/18/2021 9:07 AM
--- NOTE | 2021-11-18 10:53 | OP.CCLET_ITS ---
11/18/2021 Sandrita Segundo [address] [place] [address] Re : ERCP procedure for Gila Brown Dear Dr. Segundo This procedure was performed on Thursday, November 18, 2021. My impressions and recommendations are as follows: Impressions : - Duodenal diverticulum. - The examination was suspicious for sludge. - A single localized biliary stricture was found in the lower third of the main bile duct. The stricture was indeterminate. - A single localized biliary stricture was found in the lower third of the main bile duct. The stricture was fibrotic and indeterminate. - The entire main bile duct was dilated, uncertain significance. - Choledocholithiasis was found. Complete removal was accomplished by biliary sphincterotomy and balloon extraction. - A biliary sphincterotomy was performed. - The biliary tree was swept. - Cells for cytology obtained in the lower third of the main duct. - One temporary stent was placed into the ventral pancreatic duct. - Common bile duct was successfully dilated. Recommendations : - Discharge patient to home. - Full liquid diet - advance as tolerated to resume previous diet. - Await cytology results. - Return to my office in 2 weeks. My findings are described in the full procedure note, which is enclosed. If I can be of further assistance, please feel free to contact me at . Sincerely, Osmar Sethi, 11/18/2021 10:52:07 AM This report has been signed electronically.
[2021-11-18] MEDS: proCHLORPERazine 10 MG/2 ML Vial IV ×2 (12:35→13:39)
[2021-11-18] MEDS: Ipratropium/Albuterol Sulfate 3 ML AMPUL.NEB INHALATION (13:51)
--- NOTE | 2021-11-18 13:52 | SUR.PHASEII ---
pt c/o not being able to take deep breaths. pt reports this happens in the past and her pcp is aware. oxygen level is 98%-100% on room air. hr controlled. pt does not appear to be in any distress. notified dr martin of findings and he evaluated pt. x1 duoneb ordered and give pt IS to use.
--- NOTE | 2021-11-18 14:49 | SUR.PHASEII ---
updated dr calle on pt status. pt reports nausea has improved. third bag of ivf complete. compazine helped. dr calle okay with pt being d/c home when ready. may take tylenol as needed for pain. increase fluid intake. leght diet first couple days, no heavy foods.
--- NOTE | 2021-11-18 15:05 | SUR.PHASEII ---
pt son came to nurses station askin if pt can have sl zofran for the ride home. Dr. martin ordered zofran 4mg sl x1 now.
[2021-11-18] MEDS: Ondansetron ODT 4 MG Tablet PO (15:11)
== END 2021-11-18 23:59 | disposition home or self-care (01) ==
LOC: EN 08:17 → AC 08:18
PROVIDERS: PCP Internal Medicine; Referring Provider Internal Medicine; Visit Provider Internal Medicine Gastroenterology
PROC: (CPT 43260; principal; 2021-11-18 08:45)
DX: K80.71 Calculus of gallbladder and bile duct without cholecystitis with obstruction (principal); K57.10 Diverticulosis of small intestine without perforation or abscess without bleeding; E03.9 Hypothyroidism, unspecified; Z79.82 Long term (current) use of aspirin; Z79.899 Other long term (current) drug therapy
CPT/HCPCS: 43274; 43264; 74328; 76000; 88108; 88161; 88304; 88305; 88313; 93005; 94640; J7120; C1769; J2405

== ENCOUNTER 2022-01-08 12:42 | Outpatient (CLI) | payer MEDICARE, SELFPAY ==
--- NOTE | 2022-01-08 12:46 | STEWCON_ITS ---
Reason For Study: BRANNON; Fatigue Stress Results Protocol: Carl Protocol WITH DEFINITY Maximum Predicted HR: 139 bpm Target HR: 118 bpm % Maximum Predicted HR: 100 % DurationHeart Rate Stage (mm:ss) (bpm) BP Comment Baseline 64 150/82No Chest Pain; 4 ML Diluted Definity Carl Protocol Stage I 3:00 116 184/80No Chest Pain; Moderate Dyspnea Carl Protocol Stage II 3:00 139 198/82No Chest Pain; Moderate Dyspnea Recovery 77 138/90No Chest Pain Stress Duration: 6:00 mm:ss Maximum Stress HR: 139 bpm METS: 7 Baseline Echocardiogram Findings Stress Echo Wall motion Data Resting WM Intermediate WM Stress WM ECHO/Stress Test Echo W/Contrast Interpretation Summary Exercise stress echo. Resting EKG demonstrates normal sinus rhythm with a rate of 65 bpm normal inter vals are noted resting blood pressure is 150/82 mmHg. The patient exercised according to regul ar Carl protocol for total duration of 6 minutes. The maximum heart rate attained was 148 bpm which was 106% of max impact at heart rate. Patient completed stage II of the Carl protocol. The max imum workload was 7 metabolic equivalents. At rest there were no ST or T wave changes noted to sugg est ischemia and at peak exercise upsloping ST changes only were noted. Occasional premature atrial complexes were noted. No clinical angina was noted the test was terminated due to dyspnea and the target heart rate being achieved. The peak blood pressure was 198/82 mmHg with a rate-pressure pr oduct of 27,500. Exercise stress echo. Resting echocardiographic images were obtained with Definity enhancement. The r esting ejection fraction was estimated to be 55%. At peak exercise there was thickening of all mazariegos and reduction in low ventricular cavity size with peaking of ejection fraction approximately 65%. No wall motion abnormalities were noted to suggest ischemia. Conclusion: Exercise stress echo with no EKG or echocardiographic criteria for ischemia at a moderate workload No clinical angina noted Ordering Physician: Sandrita Segundo Referring Physician: Jose De La Torre Performed By: Stacie Robles, RDCS, RVT
== END 2022-01-08 23:59 | disposition home or self-care (01) ==
LOC: CVS 12:44
PROVIDERS: PCP Internal Medicine; Referring Provider Internal Medicine; Visit Provider Internal Medicine
DX: R07.89 Other chest pain (principal); R07.2 Precordial pain; R06.02 Shortness of breath; M25.471 Effusion, right ankle; M25.472 Effusion, left ankle
CPT/HCPCS: 93017; 93350; Q9957; A4216; C8928

== ENCOUNTER 2022-02-12 07:22 | Day surgery (SDC) | payer MEDICARE, SELFPAY ==
[2022-02-12 07:46] VITALS: BP 153/80; PULSE 63; RESP 16; TEMP 36.6; O2SAT 99; BMI 21.4
[2022-02-12] MEDS: Lactated Ringers 1,000 ML 30 ML IV (08:03)
--- NOTE | 2022-02-12 08:30 | RAD_ITS ---
STUDY: ERCP. REASON FOR EXAM: Female, 81 years old. PAIN FLUOROSCOPY TIME (if supplied): ( 3 minutes and 4 seconds ) minutes/seconds. 20 images were submitted. TECHNIQUE: An ERCP was performed by the events assistant. Imaging was submitted. COMPARISON: None. FINDINGS: There is evidence of a pancreas divisum. The common bile duct was cannulated. A balloon catheter was passed into the common bile duct. A stent was placed within the pancreatic duct. RAD/ERCP Biliary/Pancreas IMPRESSION: Pancreatic divisum. Stent placement. Electronically Signed: Kit Samuel MD at 12:38 EDT ,
--- NOTE | 2022-02-12 08:57 | HP.PCM_ITS ---
History and Physical Date of Admission: 02/12/22 81 F who presents to the office today for Last visit clinic visit 10.17.21 for diagnoses abnormal MRCP. She became known to this provider following [facility] ED presentation, workup by general surgery for gallbladder dysfunction then referral to this clinic. Dr. Thompsno diagnosed gastritis with symptoms of pain with PO intake which radiated into chest; PPI and Carafate recommended with positive results. MRCP 10.07.21 found normal gallbladder, cystic duct, intrahepatic ducts, common hepatic duct. Common bile duct mildly dilated distal of the common bile duct likely related to prior sphincterotomy. Pancreatic duct moderately dilated. Abnormal MRCP ? recommend ERCP, CA 19-9 with possible EUS pending ERCP results. ERCP performed 11.18.21 finding duodenal diverticulum; biliary stricture of the lower third of main bile duct, fibrotic and indeterminate; entire main bile duct dilated, uncertain significance; choledocholithiasis with complete removal with biliary sphincterotomy and balloon extraction; biliary sphincterotomy performed; biliary tree swept; temporary stent placed in ventral pancreatic duct; common bile duct successfully dilated. Pathology ? negative for malignancy. States she is doing very well at this time. Denies pain discomfort. With the procedure she had a lot of difficulty with emesis, SOB and pain. Squad was called and symptoms improved and she was not transported. Symptoms improved over 24 hours. However she was fatigued with decreased appetite for several days. ROS Const Constitutional: Positive for fatigue and weight change Cardio Cardiology: Positive for shortness of breath Musc Musculoskeletal: Positive for back pain Endo Endocrine: Positive for fatigue and weight change Angelo/Lymp Hematologic/Lymphatic: Positive for easy bruising Exam Const General: cooperative and comfortable Nutritional Appearance: average body habitus and well nourished [facility] Head: normal to inspection Ears: hearing grossly normal bilaterally Nose: external nose normal Face and sinus: normal facial exam Mouth: oral mucosae normal Throat: posterior oropharynx normal Eyes General: appearance normal, both eyes and all related structures Neck Neck: normal visual inspection Chest Chest palpation & inspection: normal inspection of the chest and normal palpation of entire chest wall Resp Effort & Inspection: normal respiratory effort Auscultation: Bilateral: Clear to Auscultation Cardio Palpation: normal PMI Rate: regular rate Rhythm: regular rhythm GI Inspection: normal to inspection Auscultation: normal bowel sounds Percussion: normal to percussion Palpation: no hepatosplenomegaly Skin General: no rashes or lesions noted Neuro General: patient alert Extrem General: normal to inspection Psych Affect: normal affect Quality Reporting Tobacco Screening ([facility] 138) Smoking Status: Never smoker Assessment and Plan Assessment and Plan (1) Abnormal magnetic resonance cholangiopancreatography (MRCP): Status: Acute Plan - Dr. Prasad Friend, DO: She is doing well after the ERCP. The cytology from her distal common bile duct stricture at the level of the pancreatic head did not show any atypical cells. She does have a pancreatic stent placed to due to large duodenal diverticulum and a possible incomplete pancreatic divisum. She will have the stent removed. At that time we will will see if she needs a pancreatic sphincterotomy. The size of her duct prior to stent placement was 6 mm diffusely with tapering at the level of the pancreatic head. There were no calcifications or signs of chronic pancreatitis seen on imaging. We will possibly recommend endoscopic ultrasound in the future pending a CA 19-9 and the patient symptoms. (2) she is here today for a stent removal or exchange. Coding Level of Care Code Off vis,est,level 3 Diagnoses Abnormal magnetic resonance cholangiopancreatography (MRCP) R93.3 I have re-examined the patient. There are no clinical changes since date of exam.
[2022-02-12 10:17] VITALS: BP 147/55; BP 153/80; PULSE 59; RESP 14; TEMP 36.2; O2SAT 98
[2022-02-12 10:30] VITALS: BP 131/52; BP 153/80; PULSE 61; RESP 16; O2SAT 96
[2022-02-12 10:45] VITALS: BP 153/80; BP 154/65; PULSE 56; RESP 16; O2SAT 96
[2022-02-12 10:55] VITALS: BP 141/58; BP 153/80; PULSE 54; RESP 16; TEMP 36.3; O2SAT 97
--- NOTE | 2022-02-12 11:24 | OP.ERCP_ITS ---
Patient Name: Gila Brown Procedure Date: 02/12/2022 9:11 AM Date of : 1940 Age: 81 Procedure: ERCP Indications: Pancreatic stent removal Providers: Osmar Sethi DO Medicines: General Anesthesia Patient Profile: This is an 81 year old female. Refer to note in patient chart for documentation of history and physical. Patient has symptoms. Complications: No immediate complications. Procedure: Pre-Anesthesia Assessment: - Prior to the procedure, a History and Physical was performed, and patient medications and allergies were reviewed. The patient is competent. The risks and benefits of the procedure and the sedation options and risks were discussed with the patient. All questions were answered and informed consent was obtained. Patient identification and proposed procedure were verified by the physician in the pre-procedure area. Mental Status Examination: alert and oriented. Airway Examination: normal oropharyngeal airway and neck mobility. Respiratory Examination: clear to auscultation. CV Examination: normal. Prophylactic Antibiotics: The patient does not require prophylactic antibiotics. Prior Anticoagulants: The patient has taken no previous anticoagulant or antiplatelet agents. ASA Grade Assessment: II - A patient with mild systemic disease. After reviewing the risks and benefits, the patient was deemed in satisfactory condition to undergo the procedure. The anesthesia plan was to use moderate sedation / analgesia (conscious sedation). Immediately prior to administration of medications, the patient was re-assessed for adequacy to receive sedatives. The heart rate, respiratory rate, oxygen saturations, blood pressure, adequacy of pulmonary ventilation, and response to care were monitored throughout the procedure. The physical status of the patient was re-assessed after the procedure. After obtaining informed consent, the scope was passed under direct vision. Throughout the procedure, the patient's blood pressure, pulse, and oxygen saturations were monitored continuously. The duodenoscope was introduced through the mouth, and advanced to the duodenum and used to inject contrast into the bile, dorsal and ventral pancreatic ducts. The ERCP was accomplished without difficulty. The patient tolerated the procedure well. Moderate Sedation: Moderate (conscious) sedation was personally administered by an anesthesia professional. The following parameters were monitored: oxygen saturation, heart rate, blood pressure, and response to care. Total physician intraservice time was 15 minutes. Scope In: 9:23:00 AM Scope Out: 10:03:17 AM Total Procedure Duration Time 0 hours 40 minutes 17 seconds Findings: The dog warden film was normal. The esophagus was successfully intubated under direct vision. The scope was advanced to a normal major papilla in the descending duodenum without detailed examination of the pharynx, larynx and associated structures, and upper GI tract. The upper GI tract was grossly normal. The bile duct was deeply cannulated with the short-nosed traction sphincterotome. Contrast was injected. Opacification of the main bile duct was successful. The maximum diameter of the ducts was 7 mm. The main bile duct contained a single segmental stenosis 6 mm in length. The main bile duct was diffusely dilated, acquired. The largest diameter was 8 mm. A straight Roadrunner wire was passed into the biliary tree. A 5 mm biliary sphincterotomy was made with a traction (standard) sphincterotome using ERBE electrocautery. There was no post-sphincterotomy bleeding. The biliary tree was swept with a 15 mm balloon starting at the bifurcation. Sludge was swept from the duct. One 3 Fr by 5 cm temporary stent with a full internal pigtail was placed 5 cm into the ventral pancreatic duct. Fluid flowed through the stent. The stent was in good position. One stent was removed from the pancreatic duct using a snare. The stent was found to be partially occluded via the water column test. Impression: - A single segmental biliary stricture was found in the entire main bile duct. The stricture was benign appearing. - The entire main bile duct was dilated, acquired. - A biliary sphincterotomy was performed. - The biliary tree was swept and sludge was found. - One temporary stent was placed into the ventral pancreatic duct. - One stent was removed from the pancreatic duct. Recommendation: Cystic duct is very enlarged. She should see surgery for cholecystectomy. Procedure Code(s): --- Professional --- 01597, Endoscopic retrograde cholangiopancreatography (ERCP); with removal and exchange of stent(s), biliary or pancreatic duct, including pre- and post-dilation and guide wire passage, when performed, including sphincterotomy, when performed, each stent exchanged 50978, Endoscopic retrograde cholangiopancreatography (ERCP); with removal of calculi/debris from biliary/pancreatic duct(s) 50740, 59, Endoscopic retrograde cholangiopancreatography (ERCP); with sphincterotomy/papillotomy CPT copyright 2017 [employer]. All rights reserved. The codes documented in this report are preliminary and upon photo lab specialist review may be revised to meet current compliance requirements. Osmar Sethi DO 02/12/2022 11:23:46 AM This report has been signed electronically. Number of Addenda: 0 Note Initiated On: 02/12/2022 9:11 AM
--- NOTE | 2022-02-12 11:25 | OP.CCLET_ITS ---
02/12/2022 Sandrita Segundo [address] [place] [address] Re : ERCP procedure for Gila Brown Dear Dr. Segundo This procedure was performed on Saturday, February 12, 2022. My impressions and recommendations are as follows: Impressions : - A single segmental biliary stricture was found in the entire main bile duct. The stricture was benign appearing. - The entire main bile duct was dilated, acquired. - A biliary sphincterotomy was performed. - The biliary tree was swept and sludge was found. - One temporary stent was placed into the ventral pancreatic duct. - One stent was removed from the pancreatic duct. Recommendations : Cystic duct is very enlarged. She should see surgery for cholecystectomy. My findings are described in the full procedure note, which is enclosed. If I can be of further assistance, please feel free to contact me at . Sincerely, Osmar Sethi, 02/12/2022 11:23:46 AM This report has been signed electronically.
[2022-02-12 11:34] VITALS: BP 153/80
== END 2022-02-12 23:59 | disposition home or self-care (01) ==
LOC: EN 07:24 → AC 07:24
PROVIDERS: PCP Internal Medicine; Referring Provider Internal Medicine; Visit Provider Internal Medicine Gastroenterology
PROC: (CPT 43260; principal; 2022-02-12 08:00)
DX: K83.1 Obstruction of bile duct (principal); K83.8 Other specified diseases of biliary tract; E03.9 Hypothyroidism, unspecified; Z79.899 Other long term (current) drug therapy; Z79.82 Long term (current) use of aspirin
CPT/HCPCS: 43276; 43264; 74330; 76000; 87426; C9803; J7120; J2405

== ENCOUNTER 2023-02-11 09:47 | Day surgery (SDC) | payer MEDICARE, SELFPAY ==
[2023-02-11] MEDS: Lactated Ringers 1,000 ML 15 ML IV ×2 (10:11→12:57)
[2023-02-11 10:12] VITALS: BP 151/90; PULSE 70; RESP 17; TEMP 36.6; O2SAT 93
--- NOTE | 2023-02-11 11:04 | PCM.HP.BLA ---
History and Physical Date of Admission: 02/11/23 82 F who presents to the office today for Follow up visit. Gila established with this clinic 10.17.21 for abnormal findings on ERCP. She initially presented to [facility] ED 08.23.21 for abdominal pain. Workup not indicative of cholecystitis or acute surgical need and she was discharged on Carafate and prevacid. She followed up with Dr. Thompson as an outpatient. CTA chest/abd/pel 08.23.21. Chest normal findings. Mildly distended gallbladder. Mildly dilated common bile duct and pancreatic duct both dilated of apulla of VATER. Diverticulum evidence in duodenum. Fibroid uterus. ?Gallbladder US 08.23.21 Liver measures 18cm with normal echotexture and no biliary duct dilation. Gallbladder found 2mm echogenic focus as a possible small polyp. Common bile duct at the upper limits (8mm) considering her age. Minimal dilation of pancreatic duct (3mm). Correlate with MRCP. ?MRCP performed 10.07.21 with findings of normal gallbladder, cystic duct, intrahepatic ducts, common hepatic duct. Common bile duct mildly dilated distal of the common bile duct likely related to prior sphincterotomy. Pancreatic duct moderately dilated. ERCP performed 11.18.21 finding duodenal diverticulum; biliary stricture of the lower third of main bile duct, fibrotic and indeterminate; entire main bile duct dilated, uncertain significance; choledocholithiasis with complete removal with biliary sphincterotomy and balloon extraction; biliary sphincterotomy performed; biliary tree swept; temporary stent placed in ventral pancreatic duct; common bile duct successfully dilated. Pathology negative for malignancy. ERCP performed 02.12.22 finding single biliary stricture in entire mail bile duct with acquired dilation; biliary sphincterotomy performed; biliary tree swept with sludge found; temporary stent placed in ventral pancreatic duct; one stent removed from pancreatic duct. Stent will remain for one year. Plan LV 02.26.22 Abnormal MRCP ? pancreatic divisum s/p ERCP with stent placement. Remove stent in one year. Fecal incontinence ? doing well. Doing well without any symptoms or abdominal pain. No difficulty with her BM or fecal incontinence. ROS Const Constitutional: No anorexia, fatigue, fever(s), weight change or sleep problems Eyes Eyes: No change in vision ENT ENT: No abnormal hearing, difficulty swallowing, mouth lesions, tongue swelling or throat swelling Resp Respiratory: No cough or shortness of breath Cardio Cardiology: No chest pain at rest, chest pain with exertion, shortness of breath or dyspnea on exertion Gastro GI: No difficulty swallowing Genitourinary-Female: No difficulty urinating or burning urination Musc Musculoskeletal: No joint pain, joint swelling, muscle weakness or decreased muscle mass Skin Skin: No hair loss in leg, yellowing of the eye, itchy eyes, rash, skin ulcer or skin swelling Neuro Neurology: No abnormal hearing, abnormal movements, confusion, unsteady gait/balance or memory loss Psych Psychiatric: No anxiety, No confusion and No memory loss Endo Endocrine: No fatigue or weight change Aller/Imm Allergy/Immunologic: No itchy eyes, throat swelling or tongue swelling Angelo/Lymp Hematologic/Lymphatic: No easy bleeding, easy bruising or enlarged lymph nodes Exam Const General: cooperative and comfortable Nutritional Appearance: average body habitus and well nourished HENMT Head: normal to inspection Ears: hearing grossly normal bilaterally Nose: external nose normal Face and sinus: normal facial exam Mouth: oral mucosae normal Throat: posterior oropharynx normal Eyes General: appearance normal, both eyes and all related structures Neck Neck: normal visual inspection Chest Chest palpation & inspection: normal inspection of the chest and normal palpation of entire chest wall Resp Effort & Inspection: normal respiratory effort Auscultation: Bilateral: Clear to Auscultation Cardio Palpation: normal PMI Rate: regular rate Rhythm: regular rhythm GI Inspection: normal to inspection Auscultation: normal bowel sounds Percussion: normal to percussion Palpation: no hepatosplenomegaly Skin General: no rashes or lesions noted Neuro General: patient alert Extrem General: normal to inspection Psych Affect: normal affect Quality Reporting Tobacco Screening ([facility] 138) Smoking Status: Never smoker Assessment and Plan Assessment and Plan (1) Fecal incontinence: ?Status:?Resolved ?Plan: Since she has the pancreatic stent she she has not had any episodes of abdominal pain, bloating, diarrhea or fecal incontinence.? We will schedule her for removal of the pancreatic stent in approximately 4 months.? Hopefully at that time when the stent is removed she will still be able to GI function and her pancreatic duct will be normal size without stricture. 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 The cytology from her distal common bile duct stricture at the level of the pancreatic head did not show any atypical cells.? She does have a pancreatic stent placed to due to large duodenal diverticulum and a possible incomplete pancreatic divisum.? She will have the stent removed.? At that time we will will see if she needs a pancreatic sphincterotomy.? The size of her duct prior to stent placement was 6 mm diffusely with tapering at the level of the pancreatic head.? There were no calcifications or signs of chronic pancreatitis seen on imaging.? I have examined the patient and the H&P has been reviewed. There are no clinical changes since date of exam.
--- NOTE | 2023-02-11 12:14 | RAD_ITS ---
EXAM: FL ERCP Biliary Ductal System HISTORY: PAIN COMPARISON: 11/18/2021 Technique: The endoscope was placed by Dr. Sethi, fluoroscopy time was 21 seconds, 2.75mGy,, 6 fluoroscopic images obtained FINDINGS: Previously noted very stent no longer identified. During general sedation, endoscope was placed, and the ampulla of Vater cannulized. Contrast was injected in a retrograde manner into the biliary tree. There is dilatation of the common bile duct, common hepatic duct and biliary radicals. No demonstrated filling defect is identified to suspect a retained stone but there is gradual narrowing of the common bile duct suggesting either stricture or mass lesion present around the ampulla. No extravasation of contrast is noted. The biliary dilatation has worsened since the previous study RAD/ERCP Biliary Only IMPRESSION: Worsening/progression of biliary dilatation during ERCP. The common bile duct, common hepatic duct and biliary radicles of all increased in dilatation since the previous study. No filling defect to suspect a retained stone but there is a narrowing of the distal common bile duct as it enters the ampulla. Findings suggest a mass lesion or stricture. No free flow of contrast noted into the duodenum No extravasation of contrast Electronically Signed: Braxton De La Rosa MD at 16:17 EDT ,
[2023-02-11 12:36] VITALS: BP 151/90; BP 164/67; PULSE 65; RESP 12; TEMP 36.6; O2SAT 97
--- NOTE | 2023-02-11 12:38 | OP.ERCP_ITS ---
Patient Name: Gila Brown Procedure Date: 02/11/2023 11:51 AM Date of : 1940 Age: 82 Procedure: ERCP Indications: Stent removal Providers: Osmar Sethi DO Referring MD: Osmar Sethi DO Medicines: Monitored Anesthesia Care Patient Profile: This is an 82 year old female. Refer to note in patient chart for documentation of history and physical. Patient has symptoms of acute right upper quadrant abdominal pain and chronic epigastric abdominal pain. She is status post ERCP for biliary evaluation, ERCP for stent and ERCP for stone removal within the past six months. Complications: No immediate complications. Procedure: Pre-Anesthesia Assessment: - Prior to the procedure, a History and Physical was performed, and patient medications and allergies were reviewed. The patient is competent. The risks and benefits of the procedure and the sedation options and risks were discussed with the patient. All questions were answered and informed consent was obtained. Patient identification and proposed procedure were verified by the physician. Mental Status Examination: normal. Prophylactic Antibiotics: The patient does not require prophylactic antibiotics. Prior Anticoagulants: The patient has taken no previous anticoagulant or antiplatelet agents. ASA Grade Assessment: II - A patient with mild systemic disease. After reviewing the risks and benefits, the patient was deemed in satisfactory condition to undergo the procedure. The anesthesia plan was to use monitored anesthesia care (MAC). Immediately prior to administration of medications, the patient was re-assessed for adequacy to receive sedatives. The heart rate, respiratory rate, oxygen saturations, blood pressure, adequacy of pulmonary ventilation, and response to care were monitored throughout the procedure. The physical status of the patient was re-assessed after the procedure. After obtaining informed consent, the scope was passed under direct vision. Throughout the procedure, the patient's blood pressure, pulse, and oxygen saturations were monitored continuously. The Duodenoscope was introduced through the mouth, and advanced to the duodenum and used to inject contrast into the bile duct. The ERCP was accomplished without difficulty. The patient tolerated the procedure well. Scope In: 12:14:27 PM Scope Out: 12:21:07 PM Total Procedure Duration Time 0 hours 6 minutes 40 seconds Findings: The cribbing setter film was normal. The esophagus was successfully intubated under direct vision. The scope was advanced to a normal major papilla in the descending duodenum without detailed examination of the pharynx, larynx and associated structures, and upper GI tract. The upper GI tract was grossly normal. The bile duct was deeply cannulated with the short-nosed traction sphincterotome. Contrast was injected. I personally interpreted the bile duct images. There was brisk flow of contrast through the ducts. Image quality was excellent. Contrast extended to the main bile duct. The lower third of the main bile duct contained a single localized stenosis 2 mm in length. The upper third of the main bile duct was segmentally dilated, secondary to a stricture. The largest diameter was 9 mm. A straight Roadrunner wire was passed into the biliary tree. A 5 mm biliary sphincterotomy was made with a traction (standard) sphincterotome using ERBE electrocautery. There was no post-sphincterotomy bleeding. The biliary tree was swept with a 12 mm balloon starting at the bifurcation. Sludge was swept from the duct. One stent was removed from the biliary tree using a snare. The stent was found to be patent via the water column test. Impression: - A single localized biliary stricture was found in the lower third of the main bile duct. The stricture was benign appearing. - The upper third of the main bile duct was dilated, secondary to a stricture. - A biliary sphincterotomy was performed. - The biliary tree was swept and sludge was found. - One stent was removed from the biliary tree. Procedure Code(s): --- Professional --- 59187, Endoscopic retrograde cholangiopancreatography (ERCP); with removal of foreign body(s) or stent(s) from biliary/pancreatic duct(s) 92463, Endoscopic retrograde cholangiopancreatography (ERCP); with removal of calculi/debris from biliary/pancreatic duct(s) 13074, Endoscopic retrograde cholangiopancreatography (ERCP); with sphincterotomy/papillotomy 74919, 26, Endoscopic catheterization of the biliary ductal system, radiological supervision and interpretation CPT copyright 2017 [employer]. All rights reserved. The codes documented in this report are preliminary and upon assembler tubing review may be revised to meet current compliance requirements. Osmar Sethi DO 02/11/2023 12:37:29 PM This report has been signed electronically. Number of Addenda: 0 Note Initiated On: 02/11/2023 11:51 AM
--- NOTE | 2023-02-11 12:38 | OP.CCLET_ITS ---
02/11/2023 Sandrita Segundo [address] [place] [address] Re : ERCP procedure for Gila Brown Dear Dr. Segundo This procedure was performed on Saturday, February 11, 2023. My impressions and recommendations are as follows: Impressions : - A single localized biliary stricture was found in the lower third of the main bile duct. The stricture was benign appearing. - The upper third of the main bile duct was dilated, secondary to a stricture. - A biliary sphincterotomy was performed. - The biliary tree was swept and sludge was found. - One stent was removed from the biliary tree. Recommendations : My findings are described in the full procedure note, which is enclosed. If I can be of further assistance, please feel free to contact me at . Sincerely, Osmar Sethi, 02/11/2023 12:37:29 PM This report has been signed electronically.
[2023-02-11 12:45] VITALS: BP 146/73; BP 151/90; PULSE 69; RESP 18; O2SAT 95
[2023-02-11 13:00] VITALS: BP 151/90; BP 156/67; PULSE 65; RESP 12; TEMP 36.2; O2SAT 98
[2023-02-11 13:17] VITALS: BP 151/90
== END 2023-02-11 14:14 | disposition home or self-care (01) ==
LOC: EN 09:50 → AC 09:52
PROVIDERS: PCP Internal Medicine; Referring Provider Internal Medicine; Visit Provider Internal Medicine Gastroenterology
PROC: (CPT 43260; principal; 2023-02-11 10:40)
DX: Z46.59 Encounter for fitting and adjustment of other gastrointestinal appliance and device (principal); K83.1 Obstruction of bile duct; K86.89 Other specified diseases of pancreas; E03.9 Hypothyroidism, unspecified; Z79.890 Hormone replacement therapy
CPT/HCPCS: 43264; 43275; 43262; 74328; 76000; J7120; J2405